=== PATIENT | male | born 1980 | race Caucasian/White ===

== ENCOUNTER 2020-02-27 12:47 | Emergency (ER) | payer BC ==
[2020-02-27] MEDS ORDERED: Sodium Chloride 0.9% 10 ML Syringe FLUSH PRN ×2 (13:54→14:14)
[2020-02-27] MEDS ORDERED: Iopamidol 612 MG/ML 100 ML Bottle IVPUSH ONE (14:14)
[2020-02-27] MEDS ORDERED: Diatrizoate Meglumine/Diatrizoate Sodium 37% 120 ML Bottle PO ONE (14:14)
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
--- NOTE | 2020-02-27 16:17 | CT ---
CT abdomen and pelvis Technique: Multiple axial sections were obtained from above the dome of the diaphragm inferiorly through the pubic symphysis. Intravenous and oral contrast has been given. Delayed images were also obtained through the bladder. Reconstructed coronal and sagittal images were obtained. Findings: Bowel wall thickening is identified within the transverse colon and within portions of the descending colon. Visualized lung bases show a small nodule on the left side measuring approximately 6 mm. No additional abnormality is appreciated. Liver shows no focal abnormality. Liver shows slight fatty infiltration. Spleen appears normal. Adrenal glands show no nodule. Kidneys show symmetric contrast enhancement. Two cysts are seen within the right kidney. Largest cyst measures about 2.7 cm. Pancreas is within normal limits. Gallbladder contains no calcified gallstones. Aorta shows no aneurysm. No retroperitoneal adenopathy or mesenteric abnormalities are seen. No pelvic mass or adenopathy is identified. No free fluid or other inflammatory change is seen. Small fat-containing left inguinal hernia is noted. Appendix is felt to be seen and is normal in size. Delayed images show contrast within the distal ureters and within the bladder. Bone window settings were obtained which show no acute osseous finding. Impression: 1. Bowel wall thickening within the transverse colon and small portion of the descending colon. Findings are likely due to nonspecific colitis. 2. Small nodule within the left lung base. Recommend repeat noncontrast chest CT study in one year to confirm stability. 3. Other findings as described above which are felt to be nonacute and most likely incidental. Diagnostic code #3
== END 2020-02-27 17:25 | disposition home or self-care (01) ==
LOC: JD.ED 12:47
DX: K52.9 Noninfective gastroenteritis and colitis, unspecified (principal); K60.2 Anal fissure, unspecified
CPT/HCPCS: 36415; 74177; 80053; 85025; 86140; 99284; Q9963; Q9967

== ENCOUNTER 2022-04-17 20:07 | Emergency (ER) | payer BC ==
[2022-04-17] MEDS ORDERED: Sodium Chloride 0.9% 10 ML Syringe FLUSH PRN (20:20)
[2022-04-17] MEDS ORDERED: Iopamidol 612 MG/ML 100 ML Bottle IVPUSH ONE (20:43)
[2022-04-17] MEDS ORDERED: Sodium Chloride 0.9% 10 ML Syringe FLUSH ONE (20:43)
[2022-04-17] MEDS ORDERED: Lidocaine 1% 10 ML MDV INJECT ONE (22:48)
[2022-04-17] MEDS ORDERED: Amoxicillin/Clavulanate K 875-125 MG Tab PO ONE (22:48)
== END 2022-04-17 23:51 | disposition home or self-care (01) ==
LOC: JD.ED 20:07
DX: L02.211 Cutaneous abscess of abdominal wall (principal); Z88.0 Allergy status to penicillin
CPT/HCPCS: 10060; 36415; 74177; 74177-26; 80053; 85025; 86140; 87070; 87075; 87205; 99284; J3490

== ENCOUNTER 2024-12-28 07:15 | Observation (INO) | payer BC ==
[~2024-12-28 07:15] MED LIST: Dexamethasone 4 MG/ML 5 ML MDV ONE; Esmolol 100 MG/10 ML SDV ONE; Glycopyrrolate 0.2 MG/ML 2 ML SDV ONE; Ketamine HCL/NACL, ISO-OSM 50 MG/5 ML Syringe ONE; Midazolam 1 MG/ML 2 ML SDV ONE; Sodium Chloride 0.9% 10 ML Syringe FLUSH PRN; dexmedeTOMIDine HCl 200 MCG/2 ML SDV ONE; fentaNYL 100 MCG/2 ML SDV ONE; propofoL 500 MG/50 ML 50 ML ONE
[2024-12-28] MEDS: Lactated Ringers 1,000 ML IV SCH (07:15)
[2024-12-28] MEDS ORDERED: propofoL 500 MG/50 ML 50 ML ONE ×2 (08:15→08:56)
[2024-12-28] MEDS: EPINEPHrine 1 MG/ML SDV ONE (08:18)
[2024-12-28] MEDS ORDERED: Lactated Ringers 1,000 ML ONE (08:27)
[2024-12-28] MEDS ORDERED: fentaNYL 100 MCG/2 ML SDV ONE (08:30)
[2024-12-28] MEDS ORDERED: Labetalol 100 MG/20 ML MDV ONE (08:31)
[2024-12-28] MEDS ORDERED: propofoL 1,000 MG/100 ML 100 ML ONE (08:58)
[2024-12-28] MEDS ORDERED: Ondansetron 4 MG Tab.DIS PO PRN (10:19)
[2024-12-28] MEDS: Ondansetron 4 MG/2 ML SDV IVPUSH PRN (10:38)
[2024-12-28] MEDS: fentaNYL 100 MCG/2 ML SDV IVPUSH PRN (10:40)
[2024-12-28] MEDS: Ketorolac 15 MG/ML SDV IVPUSH PRN (11:18)
[2024-12-28] MEDS: Scopalamine 1mg/3day Transdermal Patch TOP ONE (11:19)
[2024-12-28] MEDS: droPERidol 2.5 MG/ML SDV IV STA (11:19)
[2024-12-28] MEDS: Sodium Chloride 0.9% 10 ML Syringe FLUSH SCH (12:33)
== END 2024-12-29 12:37 | disposition home or self-care (01) ==
LOC: JD.SDS 07:15 → JD.MS 17:00
PROVIDERS: ADMIT Surgery; ATTEND Surgery
DX: K80.10 Calculus of gallbladder with chronic cholecystitis without obstruction (principal); K66.0 Peritoneal adhesions (postprocedural) (postinfection); Z88.5 Allergy status to narcotic agent; Z88.1 Allergy status to other antibiotic agents; Z79.899 Other long term (current) drug therapy
CPT/HCPCS: 00790; 94760; 94761; A9270-GY; J0169; J0665; J0690; J1100; J1171; J1596; J1790; J1805; J1885; J1920; J2003; J2250; J2405; J2704; J3010; J3490; J7120